=== PATIENT | male | born 1930 | race Caucasian/White ===

== ENCOUNTER 2017-08-03 07:15 | Day surgery (SDC) | payer MEDICARE ==
[2017-08-01 15:51] VITALS: BP 158/76
[2017-08-01 15:57] LABS: BASOPHILS % (AUTO) 0.4 % (0.0-5.0); HEMATOCRIT 40.7 % (42-54); LYMPHOCYTES % (AUTO) 23.3 % (21.0-51.0); MEAN CORPUSCULAR HEMOGLOBIN 32.8 pg (27.0-33.0); MEAN CORPUSCULAR HGB CONC 34.4 g/dL (32.0-36.0); MEAN CORPUSCULAR VOLUME 95.6 fL (79-99); MONOCYTES % (AUTO) 10.6 % (3.0-13.0); NEUTROPHILS % (AUTO) 63.7 % (40.0-77.0); PLATELET COUNT (AUTO) 283 K/uL (130-400); RED BLOOD CELL COUNT(AUTO) 4.26 MIL/uL (4.50-6.20); RED CELL DISTRIBUTION WIDTH 13.3 % (11.0-15.5); WHITE BLOOD COUNT (AUTO) 7.6 K/uL (4.8-10.8)
[2017-08-01 16:11] LABS: POTASSIUM 4.6 mmol/L (3.5-5.1)
[~2017-08-03] VITALS: Ht 177.8 cm; Wt 73.6 kg
[2017-08-03] VITALS (15 sets, daily range): BP systolic 143–170; BP diastolic 52–87
[~2017-08-03 07:15] MED LIST: ASPI-1012 PO; ATOR40TA71 PO; CIPR-278 PO; CLOP75TA14 PO; LEVO75 PO; LEVOFLOXACIN 500 MG/D5W 100 ML 100 ML IV SCH; MULT1TAB66 PO; TAMS0.4C32 PO
[2017-08-03] MEDS ORDERED: LACTATED RINGERS 1000ML 1,000 ML IV ONE (08:54)
[2017-08-03] MEDS ORDERED: CEFAZOLIN SODIUM 1 GM VIAL ONE (08:54)
[2017-08-03] MEDS ORDERED: LEVOFLOXACIN 500 MG/D5W 100 ML 100 ML ONE (09:15)
[2017-08-03] MEDS: LEVOFLOXACIN 500 MG/D5W 100 ML 100 ML IV SCH ×2 (09:15→09:55)
[2017-08-03] MEDS ORDERED: ONDANSETRON HCL 4 MG/2 ML VIAL ONE ×2 (09:46→10:39)
[2017-08-03] MEDS ORDERED: LIDOCAINE PF 2% 5ML ABBOJECT ONE (09:46)
[2017-08-03] MEDS ORDERED: FENTANYL CITRATE PF 50 MCG/1 ML 2ML VIAL ONE (09:46)
[2017-08-03] MEDS ORDERED: PROPOFOL 10 MG/ML 20ML VIAL IV ONE (09:46)
[2017-08-03] MEDS ORDERED: OXYTOCIN 10 USP UNITS/ML ONE (10:39)
[2017-08-03] MEDS ORDERED: DEXAMETHASONE SOD PHOSPHATE 10MG/ML 1ML VIAL ONE (10:39)
[2017-08-03] MEDS ORDERED: SODIUM CHLORIDE 0.9% 10 ML VIAL ONE (10:39)
[2017-08-03] MEDS ORDERED: MEPERIDINE-PF 50 MG/ML SYG ONE (11:15)
[2017-08-03] MEDS ORDERED: OPIUM/BELLADONNA ALKALOIDS 1 EACH SUPP.RECT RC ONE (11:36)
[2017-08-03] MEDS ORDERED: PHENAZOPYRIDINE HCL 200 MG TABLET ONE (12:21)
== END 2017-08-03 13:35 | disposition home or self-care (01) ==
LOC: DAH 07:15
PROVIDERS: ATTEND Urology
DX: N40.1 Benign prostatic hyperplasia with lower urinary tract symptoms (principal); R33.8 Other retention of urine; I25.10 Atherosclerotic heart disease of native coronary artery without angina pectoris; I10 Essential (primary) hypertension; E03.9 Hypothyroidism, unspecified; M19.90 Unspecified osteoarthritis, unspecified site; Z95.1 Presence of aortocoronary bypass graft; Z98.890 Other specified postprocedural states; Z79.899 Other long term (current) drug therapy; Z87.891 Personal history of nicotine dependence
CPT/HCPCS: 36415; 52648; 80048; 85025; 88305; 93005; A4218; A4354; A4358; A4510; A4600; J1100; J1956; J2001; J2175; J2405 ×2; J2590; J2704; J3010; J7030; J7120; J0690

== ENCOUNTER 2017-08-07 00:06 | Emergency (ER) | payer MEDICARE ==
[~2017-08-07 00:06] MED LIST changes: -ASPI-1012 PO; -CLOP75TA14 PO; -LEVOFLOXACIN 500 MG/D5W 100 ML 100 ML IV SCH
[2017-08-07] MEDS ORDERED: ACETAMINOPHEN-CODEINE ELIXIR 5 ML UDCUP ONE (01:05)
== END 2017-08-07 02:24 | disposition home or self-care (01) ==
LOC: EDH 00:06
DX: R33.9 Retention of urine, unspecified (principal); R10.9 Unspecified abdominal pain; Z98.890 Other specified postprocedural states
CPT/HCPCS: 51702

== ENCOUNTER 2017-08-07 19:45 | Emergency (ER) | payer MEDICARE | END 2017-08-07 20:59 | disposition home or self-care (01) | LOC: EDH 19:45 | DX: R33.9 Retention of urine, unspecified (principal); Z98.890 Other specified postprocedural states; Z79.899 Other long term (current) drug therapy | CPT/HCPCS: 51702 ==

== ENCOUNTER 2017-08-17 11:55 | Inpatient (IN) | payer MEDICARE ==
[~2017-08-17] VITALS: Ht 177.8 cm; Wt 73.3 kg
[2017-08-17 13:00] LABS: BASOPHILS % (AUTO) 0.2 % (0.0-5.0); EOSINOPHILS % (AUTO) 0.3 % (0.0-8.0); HEMATOCRIT 26.7 % (42-54); MEAN CORPUSCULAR HEMOGLOBIN 32.8 pg (27.0-33.0); MEAN CORPUSCULAR HGB CONC 35.5 g/dL (32.0-36.0); MEAN CORPUSCULAR VOLUME 92.3 fL (79-99); MONOCYTES % (AUTO) 9.7 % (3.0-13.0); NEUTROPHILS % (AUTO) 72.8 % (40.0-77.0); PLATELET COUNT (AUTO) 266 K/uL (130-400); RED BLOOD CELL COUNT(AUTO) 2.89 MIL/uL (4.50-6.20); RED CELL DISTRIBUTION WIDTH 12.4 % (11.0-15.5)
[2017-08-17 13:12] LABS: APPEARANCE,URINE TURBID (CLEAR); BILIRUBIN,URINE MODERATE (NEGATIVE); COLOR,URINE RED (YELLOW); GLUCOSE, URINE (UA) 100 mg/dL (NEGATIVE); KETONES,URINE 40 mg/dL (NEGATIVE); LEUKOCYTE ESTERASE ,URINE LARGE (NEGATIVE); NITRATE,URINE POSITIVE (NEGATIVE); OCCULT BLOOD,URINE LARGE (NEGATIVE); PH,URINE 7.5 (5.0-8.0); PROTEIN,URINE >=300 (NEGATIVE); UROBILINOGEN,URINE >=8.0 mg/dL (0.2-1.0)
[2017-08-17 13:12] LABS: POTASSIUM 3.5 mmol/L (3.5-5.1)
[2017-08-17 13:16] LABS: INR 1.05 (0.85-1.15); PARTIAL THROMBOPLASTIN TIME 25.5 SEC (26.3-35.5)
[2017-08-17 13:17] LABS: ALBUMIN 2.9 g/dL (3.5-5.0); BILIRUBIN,TOTAL 0.6 mg/dL (0.2-1.0); TOTAL PROTEIN, SERUM 6.1 g/dL (6.0-8.3)
[2017-08-17 13:40] LABS: RBC,URINE TNTC /HPF (0-1)
[2017-08-17 13:41] LABS: BACTERIA,URINE Moderate /HPF (None Seen)
[2017-08-17 13:42] LABS: SQUAMOUS EPITHELIAL CELL,UR None Seen /LPF (0-2)
[2017-08-17] MEDS ORDERED: MAG HYDROX/AL HYDROX/SIMETH ES 30 ML SUSP UDCUP PO PRN (15:30)
[2017-08-17] MEDS ORDERED: GUAIFENESIN-DM 200/20 MG 10 ML PO PRN (15:30)
[2017-08-17] MEDS ORDERED: LACTULOSE 20 GM/30 ML UDCUP PO PRN (15:30)
[2017-08-17] MEDS ORDERED: ONDANSETRON HCL 4 MG/2 ML VIAL IV PRN (15:30)
[2017-08-17] MEDS ORDERED: SODIUM CHLORIDE 0.9% 1000ML 1,000 ML IV ONE (16:42)
[2017-08-17 20:21] VITALS: BP 142/55
[2017-08-17 23:41] VITALS: BP 130/63
[2017-08-18] MEDS: SODIUM CHLORIDE 0.9% 1000ML 1,000 ML IV SCH ×2 (01:52→17:52)
[2017-08-18] MEDS ORDERED: HYDRALAZINE HCL 20 MG/ML VIAL IV PRN (02:00)
[2017-08-18] MEDS ORDERED: ACETAMINOPHEN 325 MG TAB PO PRN (02:00)
[2017-08-18 04:00] VITALS: BP 141/63
[2017-08-18 04:31] LABS: BASOPHILS % (AUTO) 0.4 % (0.0-5.0); EOSINOPHILS % (AUTO) 1.3 % (0.0-8.0); HEMATOCRIT 23.8 % (42-54); MEAN CORPUSCULAR HEMOGLOBIN 32.3 pg (27.0-33.0); MEAN CORPUSCULAR HGB CONC 34.9 g/dL (32.0-36.0); MEAN CORPUSCULAR VOLUME 92.8 fL (79-99); MONOCYTES % (AUTO) 12.9 % (3.0-13.0); NEUTROPHILS % (AUTO) 63.4 % (40.0-77.0); PLATELET COUNT (AUTO) 265 K/uL (130-400); RED BLOOD CELL COUNT(AUTO) 2.57 MIL/uL (4.50-6.20); RED CELL DISTRIBUTION WIDTH 12.7 % (11.0-15.5); WHITE BLOOD COUNT (AUTO) 6.7 K/uL (4.8-10.8)
[2017-08-18 04:38] LABS: CREATININE 0.8 mg/dL (0.5-1.5); POTASSIUM 3.8 mmol/L (3.5-5.1)
[2017-08-18 07:00] VITALS: BP 136/56
[2017-08-18] MEDS ORDERED: CLOP75TA32 PO (08:01)
[2017-08-18] MEDS ORDERED: ASPI-555 PO (08:01)
[2017-08-18] MEDS: FAMOTIDINE 20MG TAB 20 MG TAB PO SCH (09:51)
[2017-08-18 11:00] VITALS: BP 118/46
[2017-08-18 16:00] VITALS: BP 122/62
[2017-08-18 19:10] VITALS: BP 134/49
[2017-08-18 23:11] VITALS: BP 144/58
[2017-08-19] MEDS: SODIUM CHLORIDE 0.9% 1000ML 1,000 ML IV SCH ×2 (01:52→03:15)
[2017-08-19 03:48] VITALS: BP 143/60
[2017-08-19 07:00] VITALS: BP 142/65
[2017-08-19 07:35] LABS: HEMATOCRIT 22.9 % (42-54); MEAN CORPUSCULAR HEMOGLOBIN 33.6 pg (27.0-33.0); MEAN CORPUSCULAR HGB CONC 35.7 g/dL (32.0-36.0); MEAN CORPUSCULAR VOLUME 94.1 fL (79-99); PLATELET COUNT (AUTO) 252 K/uL (130-400); RED BLOOD CELL COUNT(AUTO) 2.43 MIL/uL (4.50-6.20); RED CELL DISTRIBUTION WIDTH 12.7 % (11.0-15.5); WHITE BLOOD COUNT (AUTO) 7.7 K/uL (4.8-10.8)
[2017-08-19 08:14] LABS: ALBUMIN 2.4 g/dL (3.5-5.0); BILIRUBIN,TOTAL 0.4 mg/dL (0.2-1.0); CREATININE 0.8 mg/dL (0.5-1.5); POTASSIUM 3.3 mmol/L (3.5-5.1); TOTAL PROTEIN, SERUM 5.3 g/dL (6.0-8.3)
[2017-08-19] MEDS: FAMOTIDINE 20MG TAB 20 MG TAB PO SCH (09:08)
[2017-08-19 11:00] VITALS: BP 136/54
[2017-08-19 16:00] VITALS: BP 143/66
== END 2017-08-19 18:10 | disposition home or self-care (01) | DRG 69 ==
LOC: EDH 11:55 → EDHIP 15:30 → OBSVTOIN 15:30 → 3CH 19:39 → UNDODEPER 08-18 04:02
PROVIDERS: ADMIT Family Medicine; ATTEND Family Medicine
DX: G45.9 Transient cerebral ischemic attack, unspecified (principal); N39.0 Urinary tract infection, site not specified; E86.0 Dehydration; E87.1 Hypo-osmolality and hyponatremia; R31.9 Hematuria, unspecified; I25.10 Atherosclerotic heart disease of native coronary artery without angina pectoris
CPT/HCPCS: 36415; 70450; 80048; 80053; 81001; 82948; 85025; 85027; 85610; 85730; 87088; 87186; 93005; J7030